=== PATIENT | male | born 1965 | race African-American/Black ===

== ENCOUNTER 2019-04-05 11:49 | Inpatient (IN) | payer OTHER ==
[2019-04-05 14:26] VITALS: BMI 29.0
--- NOTE | 2019-04-05 14:45 | HP ---
CIWA Score Nausea/Vomitin Muscle Tremors: 3 Anxiety: 3 Agitation: 3 Paroxysmal Sweats: No Perspiration Orientation: 0-Oriented Tacttile Disturbances: 1-Very Mild Itch/Numbness Auditory Disturbances: 0-None Visual Disturbances: 0-None Headache: 2-Mild CIWA-Ar Total Score: 14 - Admission Criteria OASAS Guidelines: Admission for Medically Managed Detox: Requires at least one of the followin. CIWA greater than 12 2. Seizures within the past 24 hours 3. Delirium tremens within the past 24 hours 4. Hallucinations within the past 24 hours 5. Acute intervention needed for co occurring medical disorder 6. Acute intervention needed for co occurring psychiatric disorder 7. Severe withdrawal that cannot be handled at a lower level of care (continued vomiting, continued diarrhea, abnormal vital signs) requiring intravenous medication and/or fluids 8. Admitting History and Physical - Admission Chief Complaint: i need help to stop using alcohol,cocaine History of Present Illness: this 53 years old male with alcohol and cocaine dependence seeking detox History Source: Patient Limitations to Obtaining History: No Limitations - Past Surgical History Past Surgical History: Yes: None - Smoking History Smoking history: Current every day smoker Have you smoked in the past 12 months: Yes Aproximately how many cigarettes per day: 20 - Alcohol/Substance Use Hx Alcohol Use: Yes History of Substance Use: reports: Cocaine - Social History Usual Living Arrangement: Yes: Alone Occupation: unemployed History of Recent Travel: Yes Other Social History: 53 years old male with alcohol,cociane dependence,living alone,. unemploed,smoke 1 pack/day,seeking detox Admission [facility] Chief Complaint: i need help to stop drinking alcohol and cocaine Allergies/Adverse Reactions: Allergies Allergy/AdvReac Type Severity Reaction Status Date / Time Fish Containing Products Allergy Intermediate Hives Verified 04/05/19 14:13 History of Present Illness: this 53 years old male with alcohol and cocaine dependence,seeking detox, had previous admissions in detox last 02/15 [facility] had synpoe denied seizure weight loss no significant period of sobriety plan for rehab after detox first visit to this facility Exam Limitations: No Limitations - Ebola screening Have you traveled outside of the country in the last 21 days: No Have you had contact with anyone from an Ebola affected area: No - Review of Systems Constitutional: Loss of Appetite, Malaise, Night Sweats, Changes in sleep, Weakness, Unintentional Wgt. Loss EENT: reports: Tearing, Nose Congestion Respiratory: reports: No Symptoms reported Cardiac: reports: Palpitations GI: reports: Nausea, Poor Appetite, Abdominal cramping : reports: No Symptoms Reported Musculoskeletal: reports: Back Pain, Muscle Pain Integumentary: reports: Dryness Neuro: reports: Headache, Tremors Endocrine: reports: No Symptoms Reported Hematology: reports: No Symptoms Reported Psychiatric: reports: No Sypmtoms Reported, Judgement Intact, Mood/Affect Appropiate, Orientated x3 Other Systems: Reviewed and Negative Patient History - Patient Medical History Hx Anemia: No Hx Asthma: No Hx Chronic Obstructive Pulmonary Disease (COPD): No Hx Cancer: No Hx Cardiac Disorders: No Hx Congestive Heart Failure: No Hx Hypertension: No Hx Hypercholesterolemia: No Hx Pacemaker: No HX Cerebrovascular Accident: No Hx Seizures: No Hx Dementia: No Hx Diabetes: No Hx Gastrointestinal Disorders: No Hx Liver Disease: No Hx Genitourinary Disorders: No Hx Sexually Transmitted Disorders: No Hx Renal Disease (ESRD): No Hx Thyroid Disease: No Hx Human Immunodeficiency Virus (HIV): No (last 02/15) Hx Hepatitis C: No Hx Depression: No Hx Suicide Attempt: No Hx Bipolar Disorder: No Hx Schizophrenia: No Other Medical History: nsuicidal,no homicidal - Patient Surgical History Past Surgical History: No - PPD History Previous Implant?: Yes Documented Results: Negative w/o proof Implanted On Prior [facility] Admission?: No PPD to be Administered?: Yes - Smoking Cessation Smoking history: Current every day smoker Have you smoked in the past 12 months: Yes Aproximately how many cigarettes per day: 20 Hx Chewing Tobacco Use: No Initiated information on smoking cessation: Yes 'Breaking Loose' booklet given: 04/05/19 - Substance & Tx. History Hx Alcohol Use: Yes Hx Substance Use: Yes Substance Use Type: Alcohol, Cocaine Hx Substance Use Treatment: Yes ([facility] 02/15) - Substances abused Alcohol Substance route: Oral Frequency: Daily Amount used: 3 pints of vodka Age of first use: 14 Date of last use: 04/05/19 Cocaine Substance route: Smoking Frequency: 1-2 times per week Amount used: 3 grams Age of first use: 25 Date of last use: 04/04/19 Admission Physical Exam [facility] - Vital Signs Vital Signs: Vital Signs - 24 hr 12/07/19 14:18 Temperature 97.5 F L Pulse Rate 112 H Respiratory 18 Rate Blood Pressure 98/60 - Physical General Appearance: Yes: Moderate Distress, Tremorous, Irritable, Sweating, Anxious HEENTM: Yes: Normal ENT Inspection, ANTONIETA, Pharynx Normal Respiratory: Yes: Lungs Clear, Normal Breath Sounds, No Respiratory Distress Neck: Yes: Within Normal Limits, Supple, Trachea in good position Breast: Yes: Within Normal Limits Cardiology: Yes: Tachycardia Abdominal: Yes: Within Normal Limits, Normal Bowel Sounds, Non Tender, Soft Genitourinary: Yes: Within Normal Limits Back: Yes: Muscle Spasm Musculoskeletal: Yes: Back pain, Muscle Pain Extremities: Yes: Tremors 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 NML intact, Fully Oriented, Alert, Abnormal Cranial NS Integumentary: Yes: Dry Lymphatic: Yes: Within Normal Limits - Diagnostic (1) Alcohol dependence with uncomplicated withdrawal Current Visit: Yes Status: Acute (2) Cocaine dependence Current Visit: Yes Status: Acute (3) Syncope Current Visit: Yes Status: Acute (4) Nicotine dependence Current Visit: Yes Status: Acute (5) Dehydration Current Visit: Yes Status: Acute (6) Insomnia Current Visit: Yes Status: Acute Cleared for Admission S - Detox or Rehab [facility] Level of Care: Medically Managed (ativan regimen) Inpatient Rehab Admission - Rehab Decision to Admit Inpatient rehab admission?: No
[2019-04-05] MEDS ORDERED: MENTHOL/PHENOL 1 EACH UD MM PRN (14:57)
[2019-04-05] MEDS ORDERED: MAGNESIUM HYDROX 2400MG/30ML ORAL SUSPENSION 30 ML CUP PO PRN (14:57)
[2019-04-05] MEDS ORDERED: LORazepam 1 MG TABLET PO PRN (14:57)
[2019-04-05] MEDS ORDERED: MAGNESIUM CITRATE 300 ML BOTTLE PO PRN (14:57)
[2019-04-05] MEDS ORDERED: BISMUTH SUBSALICYLATE 524 MG/30 ML UD PO PRN (14:57)
[2019-04-05] MEDS ORDERED: IBUPROFEN 400 MG TABLET (FP) PO PRN (14:57)
[2019-04-05] MEDS ORDERED: METHOCARBAMOL 500 MG TABLET PO PRN (14:57)
[2019-04-05] MEDS ORDERED: hydrOXYzine PAMOATE 25 MG CAPSULE (FP) PO PRN (14:57)
[2019-04-05] MEDS ORDERED: NICOTINE POLACRILEX 2 MG GUM BUC PRN (14:57)
[2019-04-05] MEDS ORDERED: MAG HYDROX/AL HYDROX/SIMETH 30 ML UNIT-DOSE CUP PO PRN (14:57)
[2019-04-05] MEDS ORDERED: MELATONIN 5 MG TABLETS PO PRN (14:57)
[2019-04-05] MEDS ORDERED: ACETAMINOPHEN 325 MG TABLET (FP) PO PRN ×2 (14:57)
[2019-04-05] MEDS: LORazepam 2 MG TABLET PO SCH ×2 (17:36→22:35)
[2019-04-05] MEDS: THIAMINE HCL 100 MG TABLET (FP) PO SCH (22:35)
[2019-04-06] MEDS: LORazepam 2 MG TABLET PO SCH ×4 (06:26→22:41)
[2019-04-06 10:00] LABS: HEMOGLOBIN 13.2 GM/dL (11.7-16.9); MCH 28.4 pg (25.7-33.7); MCHC 32.9 g/dl (32.0-35.9); MEAN CELL VOLUME 86.2 fl (80-96); MEAN PLT VOLUME 8.1 fl (7.5-11.1); PLATELET COUNT 204 K/MM3 (134-434); RBC 4.64 M/mm3 (4.00-5.60); RDW 14.6 % (11.9-15.9); WHITE BLOOD COUNT 3.7 K/mm3 (4.0-10.0)
[2019-04-06 10:09] LABS: ALBUMIN 3.1 g/dl (3.4-5.0); BILIRUBIN,TOTAL 0.3 mg/dL (0.2-1); BLOOD UREA NITROGEN 9.8 mg/dL (7-18); CALCIUM 8.2 mg/dL (8.5-10.1); CREATININE 1.2 mg/dL (0.55-1.3); POTASSIUM 3.9 mmol/L (3.5-5.1)
[2019-04-06] MEDS: PRENATAL VITAMINS W/ FOLIC ACID TABLET (FP) PO SCH (10:32)
--- NOTE | 2019-04-06 16:31 | PN ---
[facility] CIWA - CIWA Score Nausea/Vomitin-Mild Nausea/No Vomiting Muscle Tremors: 3 Anxiety: 3 Agitation: 2 Paroxysmal Sweats: 3 Orientation: 0-Oriented Tacttile Disturbances: 0-None Auditory Disturbances: 0-None Visual Disturbances: 0-None Headache: 0-None Present CIWA-Ar Total Score: 12 [facility] Progress Note (SOAP) Subjective: Tremor, chills, sweating, headache, yawning, nausea Objective: 04/06/19 16:22 Last Vital Signs Temp Pulse Resp BP Pulse Ox 97.1 F L 91 H 18 125/81 04/06/19 15:06 04/06/19 15:06 04/06/19 15:06 04/06/19 15:06 Laboratory Tests 04/06/19 04/06/19 04/06/19 07:50 07:50 07:50 WBC 3.7 L RBC 4.64 Hgb 13.2 Hct 40.0 MCV 86.2 MCH 28.4 MCHC 32.9 RDW 14.6 Plt Count 204 MPV 8.1 Sodium 140 Potassium 3.9 Chloride 105 Carbon Dioxide 28 Anion Gap 7 L BUN 9.8 Creatinine 1.2 Est GFR (CKD-EPI)AfAm 80.10 Est GFR (CKD-EPI)NonAf 69.11 Random Glucose 189 H Calcium 8.2 L Total Bilirubin 0.3 AST 45 H ALT 31 Alkaline Phosphatase 67 Total Protein 6.0 L Albumin 3.1 L RPR Titer Nonreactive Labs reviewed: Calcium 8.2 (L), AST (45): high, serum glucose 189 (high), total protein/albumin: low Assessment: 04/06/19 16:31 Withdrawal sxs Noted with hypocalcemia, transaminitis, hyperglycemia and hypoalbuminemia Plan: Continue detox Encouraged PO water intake Hypocalcemia: start calcium carbonate 650mg PO bid x 3 days Mild transaminitis: monitor AST periodically, encouraged abstinence from alcohol use, follow up with PCP for monitoring Hyperglycemia: denies DM, repeat fasting glucose, send HbA1c, start finger stick TIDAC with sliding scale insulin coverage TIDAC, initiate treatment for DM if warranted Hypoalbuminemia: encouraged diet
[2019-04-06] MEDS ORDERED: INSULIN SLIDING SCALE (NOVOLOG) 1 VIAL SQ SCH (16:45)
--- NOTE | 2019-04-06 17:38 | PN ---
S Progress Note Note: initial glucose is 189,denied diabetes,advise ncs,life style change diet modification,bgm achs and monitorng, to d/c insulin for now,fasting glucose in am,close monitoring of bgm
[2019-04-06] MEDS: THIAMINE HCL 100 MG TABLET (FP) PO SCH (22:41)
[2019-04-06] MEDS: CALCIUM CARBONATE 650 MG TABLET PO SCH (23:20)
--- NOTE | 2019-04-07 01:09 | EKG ---
Test Reason : Blood Pressure : / mmHG Vent. Rate : 085 BPM Atrial Rate : 085 BPM P-R Int : 144 ms QRS Dur : 092 ms QT Int : 342 ms P-R-T Axes : 070 043 044 degrees QTc Int : 406 ms NORMAL SINUS RHYTHM WITH SINUS ARRHYTHMIA NONSPECIFIC T WAVE ABNORMALITY ABNORMAL ECG NO PREVIOUS ECGS AVAILABLE Confirmed by DERECK RAMIREZ, CRESCENCIO ([id number]) on 04/07/2019 1:09:29 AM Referred By: Confirmed By:CRESCENCIO HARDEN MD
[2019-04-07] MEDS: LORazepam 1 MG TABLET PO SCH ×4 (05:54→22:26)
[2019-04-07] MEDS: CALCIUM CARBONATE 650 MG TABLET PO SCH ×2 (10:15→22:26)
[2019-04-07] MEDS: PRENATAL VITAMINS W/ FOLIC ACID TABLET (FP) PO SCH (10:15)
--- NOTE | 2019-04-07 13:01 | PN ---
S CIWA - CIWA Score Nausea/Vomitin-Mild Nausea/No Vomiting Muscle Tremors: 1-None Visible, but [place] Anxiety: 2 Agitation: 2 Paroxysmal Sweats: No Perspiration Orientation: 0-Oriented Tacttile Disturbances: 1-Very Mild Itch/Numbness Auditory Disturbances: 0-None Visual Disturbances: 0-None Headache: 1-Very Mild CIWA-Ar Total Score: 8 [facility] Progress Note (SOAP) Subjective: alert,irritable,anxiuos,interrupted sleep,tremor Objective: 04/07/19 12:59 Vital Signs Temperature 98.6 F 04/07/19 11:46 Pulse Rate 102 H 04/07/19 11:46 Respiratory Rate 16 04/07/19 11:46 Blood Pressure 121/82 04/07/19 11:46 O2 Sat by Pulse Oximetry (%) Abnormal Lab Results 04/07/19 04/07/19 07:50 07:50 Fasting Glucose 118 H Hemoglobin A1c % 6.9 H Assessment: 04/07/19 12:59 withdrawal symptom Plan: continue detox ativan regimen,diet modification ncs,bgm monitoring,
[2019-04-07] MEDS: THIAMINE HCL 100 MG TABLET (FP) PO SCH (22:26)
[2019-04-08] MEDS ORDERED: LORazepam 0.5 MG TABLET PO PRN
[2019-04-08] MEDS: LORazepam 0.5 MG TABLET PO SCH ×4 (05:52→22:13)
[2019-04-08] MEDS: PRENATAL VITAMINS W/ FOLIC ACID TABLET (FP) PO SCH (10:18)
[2019-04-08] MEDS: CALCIUM CARBONATE 650 MG TABLET PO SCH ×2 (10:19→22:13)
--- NOTE | 2019-04-08 10:56 | PN ---
S CIWA - CIWA Score Nausea/Vomitin-No Nausea/No Vomiting Muscle Tremors: 1-None Visible, but [place] Anxiety: 2 Agitation: 2 Paroxysmal Sweats: No Perspiration Orientation: 0-Oriented Tacttile Disturbances: 1-Very Mild Itch/Numbness Auditory Disturbances: 0-None Visual Disturbances: 0-None Headache: 1-Very Mild CIWA-Ar Total Score: 7 [facility] Progress Note (SOAP) Subjective: alert,irritable,anxious,interrupted sleep Objective: 04/08/19 10:49 Vital Signs Temperature 98.2 F 04/08/19 09:21 Pulse Rate 93 H 04/08/19 09:21 Respiratory Rate 04/08/19 09:21 Blood Pressure 118/68 04/08/19 09:21 O2 Sat by Pulse Oximetry (%) 04/08/19 10:49 bgm is 128 Assessment: 04/08/19 10:50 withdrawal symptom Plan: continue detox ativan regimen,ncs,life style diet modification bgm monitoring, patient will see his own pmd for follow up for hyperglycemia,patient's mother has dm,discharge in am
[2019-04-08] MEDS: THIAMINE HCL 100 MG TABLET (FP) PO SCH (22:13)
[2019-04-09] MEDS ORDERED: LORazepam 0.5 MG TABLET PO ONE (05:00)
--- NOTE | 2019-04-09 09:23 | DS ---
[facility] Detox Discharge Summary Admission Date: 04/05/19 Discharge Date: 04/09/19 - History Present History: Alcohol Dependence, Cocaine Dependence - Physical Exam Results Vital Signs: Vital Signs Temperature 98.1 F 04/09/19 06:57 Pulse Rate 86 04/09/19 06:57 Respiratory Rate 18 04/09/19 06:57 Blood Pressure 112/71 04/09/19 06:57 O2 Sat by Pulse Oximetry (%) Pertinent Admission Physical Exam Findings: Vital Signs Temperature 98.1 F 04/09/19 06:57 Pulse Rate 86 04/09/19 06:57 Respiratory Rate 18 04/09/19 06:57 Blood Pressure 112/71 04/09/19 06:57 O2 Sat by Pulse Oximetry (%) Laboratory Tests 04/06/19 04/06/19 04/06/19 07:50 07:50 07:50 WBC 3.7 L RBC 4.64 Hgb 13.2 Hct 40.0 MCV 86.2 MCH 28.4 MCHC 32.9 RDW 14.6 Plt Count 204 MPV 8.1 Sodium 140 Potassium 3.9 Chloride 105 Carbon Dioxide 28 Anion Gap 7 L BUN 9.8 Creatinine 1.2 Est GFR (CKD-EPI)AfAm 80.10 Est GFR (CKD-EPI)NonAf 69.11 POC Glucometer Random Glucose 189 H Fasting Glucose Hemoglobin A1c % Calcium 8.2 L Total Bilirubin 0.3 AST 45 H ALT 31 Alkaline Phosphatase 67 Total Protein 6.0 L Albumin 3.1 L RPR Titer Nonreactive 04/07/19 04/07/19 04/07/19 05:55 07:50 07:50 WBC RBC Hgb Hct MCV MCH MCHC RDW Plt Count MPV Sodium Potassium Chloride Carbon Dioxide Anion Gap BUN Creatinine Est GFR (CKD-EPI)AfAm Est GFR (CKD-EPI)NonAf POC Glucometer 137 Random Glucose Fasting Glucose 118 H Hemoglobin A1c % 6.9 H Calcium Total Bilirubin AST ALT Alkaline Phosphatase Total Protein Albumin RPR Titer 04/07/19 04/07/19 04/08/19 16:19 21:57 07:05 WBC RBC Hgb Hct MCV MCH MCHC RDW Plt Count MPV Sodium Potassium Chloride Carbon Dioxide Anion Gap BUN Creatinine Est GFR (CKD-EPI)AfAm Est GFR (CKD-EPI)NonAf POC Glucometer 149 133 128 Random Glucose Fasting Glucose Hemoglobin A1c % Calcium Total Bilirubin AST ALT Alkaline Phosphatase Total Protein Albumin RPR Titer 04/08/19 04/08/19 04/09/19 16:27 21:36 05:45 WBC RBC Hgb Hct MCV MCH MCHC RDW Plt Count MPV Sodium Potassium Chloride Carbon Dioxide Anion Gap BUN Creatinine Est GFR (CKD-EPI)AfAm Est GFR (CKD-EPI)NonAf POC Glucometer 159 204 142 Random Glucose Fasting Glucose Hemoglobin A1c % Calcium Total Bilirubin AST ALT Alkaline Phosphatase Total Protein Albumin RPR Titer aaox3 ambulating no acute distress - Treatment Hospital Course: Detox Protocol Followed, Detoxed Safely, Responded well, Discharged Condition Good, Rehab Referral Accepted Patient has Accepted a Rehab Referral to: pt referred to [facility] - Medication Discharge Medications: Ambulatory Orders NK [No Known Home Medication] 04/05/19 - Diagnosis (1) Alcohol dependence with uncomplicated withdrawal Current Visit: Yes Status: Chronic (2) Cocaine dependence Current Visit: Yes Status: Chronic Qualifiers: Substance use status: uncomplicated Qualified Code(s): F14.20 - Cocaine dependence, uncomplicated (3) Insomnia Current Visit: Yes Status: Acute (4) Nicotine dependence Current Visit: Yes Status: Chronic Qualifiers: Nicotine product type: cigarettes Substance use status: uncomplicated Qualified Code(s): F17.210 - Nicotine dependence, cigarettes, uncomplicated (5) Syncope Current Visit: Yes Status: Acute - AMA Did Patient Leave Against Medical Advice: No
[2019-04-09 09:28] VITALS: BP 112/66; PULSE 96; TEMP 97.7
== END 2019-04-09 10:32 | disposition home or self-care (01) | DRG 774 ==
LOC: YASAS 11:49 → Y6N 15:19
PROVIDERS: ADMIT Allergy & Immunology; ATTEND Allergy & Immunology
PROC: HZ2ZZZZ Detoxification Services for Substance Abuse Treatment (ICD-10-PCS; principal; 2019-04-05)
DX: F10.230 Alcohol dependence with withdrawal, uncomplicated (principal); F14.20 Cocaine dependence, uncomplicated; F17.210 Nicotine dependence, cigarettes, uncomplicated; G47.00 Insomnia, unspecified; E86.0 Dehydration; E88.09 Other disorders of plasma-protein metabolism, not elsewhere classified; E83.51 Hypocalcemia; R74.0 Nonspecific elevation of levels of transaminase and lactic acid dehydrogenase [LDH]; R55 Syncope and collapse; R73.9 Hyperglycemia, unspecified; R63.4 Abnormal weight loss; Z68.29 Body mass index [BMI] 29.0-29.9, adult; Z91.013 Allergy to seafood
CPT/HCPCS: 36415; 80053; 82947; 82962; 83036; 85027; 86593; 93005; 93010

== ENCOUNTER 2022-01-03 15:42 | Inpatient (IN) | payer OTHER ==
[2022-01-03 20:31] VITALS: BMI 26.4
[2022-01-03] MEDS ORDERED: MAGNESIUM HYDROX 2400MG/30ML ORAL SUSPENSION 30 ML CUP PO PRN (21:26)
[2022-01-03] MEDS ORDERED: IBUPROFEN 400 MG TABLET (FP) PO PRN (21:26)
[2022-01-03] MEDS ORDERED: BISMUTH SUBSALICYLATE 524 MG/30 ML PO PRN (21:26)
[2022-01-03] MEDS ORDERED: LOPERAMIDE HCL 2 MG CAPSULE PO PRN (21:26)
[2022-01-03] MEDS ORDERED: MAGNESIUM CITRATE 300 ML BOTTLE PO PRN (21:26)
[2022-01-03] MEDS ORDERED: BENZOCAINE/MENTHOL (CHLORASEPTIC ) LOZENGE MM PRN (21:26)
[2022-01-03] MEDS ORDERED: ONDANSETRON *ODT* 4 MG TABLET SL PRN (21:26)
[2022-01-03] MEDS ORDERED: IBUPROFEN 600 MG TABLET (FP) PO PRN (21:26)
[2022-01-03] MEDS ORDERED: DICYCLOMINE HCL 10 MG CAPSULE PO PRN (21:26)
[2022-01-03] MEDS ORDERED: ACETAMINOPHEN 325 MG TABLET (FP) PO PRN ×2 (21:26)
[2022-01-03] MEDS ORDERED: NICOTINE POLACRILEX 2 MG GUM BUC PRN (21:26)
[2022-01-03] MEDS ORDERED: hydrOXYzine PAMOATE 25 MG CAPSULE (FP) PO PRN (21:26)
[2022-01-03] MEDS ORDERED: P-EPHED 60MG/TRIPROLIDI 2.5MG TABLET PO PRN (21:26)
[2022-01-03] MEDS ORDERED: MAG HYDROX/AL HYDROX/SIMETH 30 ML UNIT-DOSE CUP PO PRN (21:26)
[2022-01-04] MEDS: THIAMINE HCL 100 MG TABLET (FP) PO SCH ×2 (01:51→22:48)
[2022-01-04] MEDS: PRENATAL VITAMINS W/ FOLIC ACID TABLET (FP) PO SCH ×2 (11:06→11:08)
[2022-01-04 13:52] LABS: CALCIUM 7.8 mg/dL (8.5-10.1)
[2022-01-04 13:53] LABS: ALBUMIN 2.8 g/dl (3.4-5.0); BLOOD UREA NITROGEN 7.5 mg/dL (7-18)
[2022-01-04 13:56] LABS: CREATININE 1.2 mg/dL (0.55-1.3)
[2022-01-04 13:57] LABS: BILIRUBIN,TOTAL 0.3 mg/dL (0.2-1); TOT PROT 5.6 g/dl (6.4-8.2)
[2022-01-04 14:01] LABS: HEMATOCRIT 33.6 % (35.4-49); MCH 28.2 pg (25.7-33.7); MCHC 32.8 g/dl (32.0-35.9); MEAN PLT VOLUME 8.2 fl (7.5-11.1); PLATELET COUNT 212 10^3/uL (134-434); RDW 14.6 % (11.9-15.9); WHITE BLOOD COUNT 5.1 K/mm3 (4.0-10.0)
[2022-01-04] MEDS: INSULIN SLIDING SCALE (NOVOLOG) 1 VIAL SQ SCH ×2 (17:47→22:59)
[2022-01-04] MEDS: MELATONIN 5 MG TABLETS PO PRN (22:48)
[2022-01-04] MEDS: METHOCARBAMOL 500 MG TABLET PO PRN (22:49)
[2022-01-05] MEDS: INSULIN SLIDING SCALE (NOVOLOG) 1 VIAL SQ SCH ×4 (06:59→23:58)
[2022-01-05] MEDS: guaiFENesin 200 MG/10 ML 10 ML UNIT-DOSE CUPS PO PRN ×2 (10:53→17:19)
[2022-01-05] MEDS: PRENATAL VITAMINS W/ FOLIC ACID TABLET (FP) PO SCH (10:53)
[2022-01-05] MEDS: MELATONIN 5 MG TABLETS PO PRN (23:00)
[2022-01-05] MEDS: THIAMINE HCL 100 MG TABLET (FP) PO SCH (23:00)
[2022-01-06] MEDS ORDERED: INSULIN SLIDING SCALE (NOVOLOG) 1 VIAL SQ ONE (08:11)
[2022-01-06] MEDS: INSULIN SLIDING SCALE (NOVOLOG) 1 VIAL SQ SCH ×4 (08:12→22:29)
[2022-01-06] MEDS: PRENATAL VITAMINS W/ FOLIC ACID TABLET (FP) PO SCH (10:57)
[2022-01-06] MEDS: guaiFENesin 200 MG/10 ML 10 ML UNIT-DOSE CUPS PO PRN (15:32)
[2022-01-06] MEDS: THIAMINE HCL 100 MG TABLET (FP) PO SCH (22:29)
[2022-01-06] MEDS: MELATONIN 5 MG TABLETS PO PRN (22:29)
[2022-01-07] MEDS: INSULIN SLIDING SCALE (NOVOLOG) 1 VIAL SQ SCH ×4 (08:09→22:31)
[2022-01-07] MEDS: PRENATAL VITAMINS W/ FOLIC ACID TABLET (FP) PO SCH (10:40)
[2022-01-07] MEDS: guaiFENesin 200 MG/10 ML 10 ML UNIT-DOSE CUPS PO PRN (17:20)
[2022-01-07] MEDS: THIAMINE HCL 100 MG TABLET (FP) PO SCH (22:31)
[2022-01-07] MEDS: MELATONIN 5 MG TABLETS PO PRN (22:31)
[2022-01-08] MEDS: INSULIN SLIDING SCALE (NOVOLOG) 1 VIAL SQ SCH ×4 (07:02→22:37)
[2022-01-08] MEDS: PRENATAL VITAMINS W/ FOLIC ACID TABLET (FP) PO SCH (10:44)
[2022-01-08] MEDS: THIAMINE HCL 100 MG TABLET (FP) PO SCH (22:37)
[2022-01-09] MEDS: INSULIN SLIDING SCALE (NOVOLOG) 1 VIAL SQ SCH ×4 (06:16→22:28)
[2022-01-09] MEDS: PRENATAL VITAMINS W/ FOLIC ACID TABLET (FP) PO SCH (10:37)
[2022-01-09] MEDS: THIAMINE HCL 100 MG TABLET (FP) PO SCH (21:18)
[2022-01-09] MEDS: METHOCARBAMOL 500 MG TABLET PO PRN (21:18)
[2022-01-09 22:12] VITALS: RESP 18
[2022-01-10 07:00] VITALS: PULSE 58
[2022-01-10] MEDS: INSULIN SLIDING SCALE (NOVOLOG) 1 VIAL SQ SCH (08:25)
[2022-01-10 09:19] VITALS: BP 92/56; TEMP 97.8
[2022-01-10] MEDS: PRENATAL VITAMINS W/ FOLIC ACID TABLET (FP) PO SCH (11:17)
== END 2022-01-10 11:55 | disposition home or self-care (01) | DRG 774 ==
LOC: YASAS 15:42 → UNDOADMIN 01-04 01:29 → Y3N 01-04 01:29
PROVIDERS: ADMIT Allergy & Immunology; ATTEND Family Medicine Addiction Medicine
PROC: HZ2ZZZZ Detoxification Services for Substance Abuse Treatment (ICD-10-PCS; principal; 2022-01-04)
DX: F10.230 Alcohol dependence with withdrawal, uncomplicated (principal); F14.20 Cocaine dependence, uncomplicated; F17.210 Nicotine dependence, cigarettes, uncomplicated; U07.1 COVID-19; G62.9 Polyneuropathy, unspecified; R76.8 Other specified abnormal immunological findings in serum; E11.9 Type 2 diabetes mellitus without complications; Z79.4 Long term (current) use of insulin
CPT/HCPCS: 36415; 80053; 82962; 85027; 86593; 86780; C9803-CS; U0003; U0005

== ENCOUNTER 2023-04-25 12:58 | Inpatient (IN) | payer OTHER ==
[2023-04-25 13:53] VITALS: BMI 29.0
[2023-04-25] MEDS ORDERED: ACETAMINOPHEN 325 MG TABLET (FP) PO PRN (18:52)
[2023-04-25] MEDS ORDERED: chlordiazePOXIDE HCL 25 MG CAPSULE PO PRN (18:52)
[2023-04-25] MEDS ORDERED: DICYCLOMINE HCL 10 MG CAPSULE PO PRN (18:52)
[2023-04-25] MEDS ORDERED: POLYETHYLENE GLYCOL (HEALTHYLAX) 3350 17 GM PACKET PO PRN (18:52)
[2023-04-25] MEDS ORDERED: guaiFENesin 600 MG TABLET.ER (FP) PO PRN (18:52)
[2023-04-25] MEDS ORDERED: MAGNESIUM HYDROX 2400MG/30ML ORAL SUSPENSION 30 ML CUP PO PRN (18:52)
[2023-04-25] MEDS ORDERED: NALOXONE HCL 0.4 MG/ML VIAL IM PRN (18:52)
[2023-04-25] MEDS ORDERED: IBUPROFEN 400 MG TABLET (FP) PO PRN (18:52)
[2023-04-25] MEDS ORDERED: IBUPROFEN 600 MG TABLET (FP) PO PRN (18:52)
[2023-04-25] MEDS ORDERED: LOPERAMIDE HCL 2 MG CAPSULE PO PRN (18:52)
[2023-04-25] MEDS ORDERED: hydrOXYzine PAMOATE 25 MG CAPSULE (FP) PO PRN (18:52)
[2023-04-25] MEDS ORDERED: NALOXONE HCL (KLOXXADO) 8 MG SPRAY NS PRN (18:52)
[2023-04-25] MEDS ORDERED: BENZOCAINE/MENTHOL (CHLORASEPTIC ) LOZENGE MM PRN (18:52)
[2023-04-25] MEDS ORDERED: ONDANSETRON *ODT* 4 MG TABLET SL PRN (18:52)
[2023-04-25] MEDS ORDERED: BISMUTH SUBSALICYLATE 524 MG/30 ML PO PRN (18:52)
[2023-04-25] MEDS ORDERED: METHOCARBAMOL 500 MG TABLET PO PRN (18:52)
[2023-04-25] MEDS ORDERED: MAG HYDROX/AL HYDROX/SIMETH 30 ML UNIT-DOSE CUP PO PRN (18:52)
[2023-04-25] MEDS ORDERED: BENZONATATE 200 MG CAPSULE PO PRN (18:52)
[2023-04-25] MEDS: chlordiazePOXIDE HCL 25 MG CAPSULE PO SCH (22:12)
[2023-04-25] MEDS: INSULIN (LEVEMIR) 100 UNITS/ML UNITS SQ SCH (22:13)
[2023-04-25] MEDS: THIAMINE HCL 100 MG TABLET (FP) PO SCH (22:13)
[2023-04-25] MEDS: MELATONIN 5 MG TABLETS PO SCH (22:13)
[2023-04-26] MEDS: chlordiazePOXIDE HCL 25 MG CAPSULE PO SCH ×4 (06:00→23:12)
[2023-04-26] MEDS: metFORMIN HCL 500 MG TABLET (FP) PO SCH ×2 (06:18→17:01)
[2023-04-26] MEDS: INSULIN SLIDING SCALE (NOVOLOG) 1 VIAL SQ SCH ×3 (06:20→17:00)
[2023-04-26] MEDS: PANTOPRAZOLE 40 MG TABLET PO SCH (10:48)
[2023-04-26] MEDS: PRENATAL VITAMINS W/ FOLIC ACID TABLET (FP) PO SCH (10:48)
[2023-04-26 11:09] LABS: HEMATOCRIT 42.6 % (35.4-49); HEMOGLOBIN 13.9 GM/dL (11.7-16.9); MCH 28.9 pg (25.7-33.7); MCHC 32.6 g/dl (32.0-35.9); MEAN CELL VOLUME 88.6 fl (80-96); MEAN PLT VOLUME 7.7 fl (7.5-11.1); PLATELET COUNT 320 10^3/uL (134-434); RDW 13.7 % (11.9-15.9); WHITE BLOOD COUNT 5.8 K/mm3 (4.0-10.0)
[2023-04-26 12:24] LABS: CHLORIDE 104 mmol/L (98-107); POTASSIUM 4.3 mmol/L (3.5-5.1); SODIUM 138 mmol/L (136-145)
[2023-04-26 12:28] LABS: ALBUMIN 3.3 g/dl (3.4-5.0); ANION GAP 5 mmol/L (4-13); BLOOD UREA NITROGEN 15.9 mg/dL (7-18); CALCIUM 9.7 mg/dL (8.5-10.1); CO2 29 mmol/L (21-32); GLUCOSE,RANDOM 140 mg/dL (74-106)
[2023-04-26 12:30] LABS: CREATININE 1.1 mg/dL (0.55-1.3); SGOT/AST 8 U/L (15-37); SGPT/ALT 18 U/L (13-61)
[2023-04-26 12:32] LABS: ALK PHOS 54 U/L (45-117); BILIRUBIN,TOTAL 0.3 mg/dL (0.2-1)
[2023-04-26] MEDS ORDERED: TAMSULOSIN HCL 0.4 MG CAP PO SCH (22:00)
[2023-04-26] MEDS: MELATONIN 5 MG TABLETS PO SCH (22:11)
[2023-04-26] MEDS: DIVALPROEX SODIUM 500 MG TABLET E.C. PO SCH (22:11)
[2023-04-26] MEDS: THIAMINE HCL 100 MG TABLET (FP) PO SCH (22:12)
[2023-04-26] MEDS: risperiDONE 1 MG TABLET PO SCH (22:12)
[2023-04-26] MEDS: INSULIN (LEVEMIR) 100 UNITS/ML UNITS SQ SCH (22:12)
[2023-04-27] MEDS: chlordiazePOXIDE HCL 25 MG CAPSULE PO SCH ×4 (05:45→22:12)
[2023-04-27] MEDS: metFORMIN HCL 500 MG TABLET (FP) PO SCH ×2 (07:18→16:45)
[2023-04-27] MEDS: INSULIN SLIDING SCALE (NOVOLOG) 1 VIAL SQ SCH ×3 (07:19→16:48)
[2023-04-27] MEDS: TAMSULOSIN HCL 0.4 MG CAP PO SCH (08:42)
[2023-04-27] MEDS: PRENATAL VITAMINS W/ FOLIC ACID TABLET (FP) PO SCH (10:21)
[2023-04-27] MEDS: DIVALPROEX SODIUM 500 MG TABLET E.C. PO SCH ×2 (10:21→22:12)
[2023-04-27] MEDS: PANTOPRAZOLE 40 MG TABLET PO SCH (10:22)
[2023-04-27] MEDS: risperiDONE 1 MG TABLET PO SCH (22:12)
[2023-04-27] MEDS: INSULIN (LEVEMIR) 100 UNITS/ML UNITS SQ SCH (22:12)
[2023-04-27] MEDS: THIAMINE HCL 100 MG TABLET (FP) PO SCH (22:12)
[2023-04-27] MEDS: MELATONIN 5 MG TABLETS PO SCH (22:12)
[2023-04-28] MEDS ORDERED: chlordiazePOXIDE HCL 10 MG CAPSULE PO PRN
[2023-04-28] MEDS: chlordiazePOXIDE HCL 10 MG CAPSULE PO SCH ×4 (05:35→22:58)
[2023-04-28] MEDS: INSULIN SLIDING SCALE (NOVOLOG) 1 VIAL SQ SCH ×3 (06:19→17:58)
[2023-04-28] MEDS: metFORMIN HCL 500 MG TABLET (FP) PO SCH ×2 (06:19→17:39)
[2023-04-28] MEDS: TAMSULOSIN HCL 0.4 MG CAP PO SCH (08:50)
[2023-04-28] MEDS: PRENATAL VITAMINS W/ FOLIC ACID TABLET (FP) PO SCH (10:11)
[2023-04-28] MEDS: PANTOPRAZOLE 40 MG TABLET PO SCH (10:11)
[2023-04-28] MEDS: DIVALPROEX SODIUM 500 MG TABLET E.C. PO SCH ×2 (10:12→22:52)
[2023-04-28] MEDS: risperiDONE 1 MG TABLET PO SCH (22:52)
[2023-04-28] MEDS: MELATONIN 5 MG TABLETS PO SCH (22:53)
[2023-04-28] MEDS: INSULIN (LEVEMIR) 100 UNITS/ML UNITS SQ SCH (22:53)
[2023-04-28] MEDS: THIAMINE HCL 100 MG TABLET (FP) PO SCH (22:53)
[2023-04-29] MEDS: chlordiazePOXIDE HCL 10 MG CAPSULE PO SCH ×2 (05:32→17:13)
[2023-04-29] MEDS: metFORMIN HCL 500 MG TABLET (FP) PO SCH ×2 (06:37→17:12)
[2023-04-29] MEDS: INSULIN SLIDING SCALE (NOVOLOG) 1 VIAL SQ SCH ×3 (06:38→17:15)
[2023-04-29] MEDS: TAMSULOSIN HCL 0.4 MG CAP PO SCH (09:02)
[2023-04-29] MEDS: PRENATAL VITAMINS W/ FOLIC ACID TABLET (FP) PO SCH (10:23)
[2023-04-29] MEDS: PANTOPRAZOLE 40 MG TABLET PO SCH (10:24)
[2023-04-29] MEDS: DIVALPROEX SODIUM 500 MG TABLET E.C. PO SCH ×2 (10:24→22:32)
[2023-04-29] MEDS: VITAMINS A AND D TOPICAL OINTMENT 60 GM TUBE TP SCH ×3 (12:18→23:53)
[2023-04-29] MEDS: MELATONIN 5 MG TABLETS PO SCH (22:32)
[2023-04-29] MEDS: THIAMINE HCL 100 MG TABLET (FP) PO SCH (22:32)
[2023-04-29] MEDS: risperiDONE 1 MG TABLET PO SCH (22:32)
[2023-04-29] MEDS: INSULIN (LEVEMIR) 100 UNITS/ML UNITS SQ SCH (22:33)
[2023-04-30] MEDS ORDERED: chlordiazePOXIDE HCL 10 MG CAPSULE PO ONE (05:00)
[2023-04-30] MEDS: VITAMINS A AND D TOPICAL OINTMENT 60 GM TUBE TP SCH ×2 (06:50→12:08)
[2023-04-30] MEDS: metFORMIN HCL 500 MG TABLET (FP) PO SCH (07:00)
[2023-04-30] MEDS: INSULIN SLIDING SCALE (NOVOLOG) 1 VIAL SQ SCH ×2 (07:42→11:55)
[2023-04-30] MEDS: TAMSULOSIN HCL 0.4 MG CAP PO SCH (08:42)
[2023-04-30] MEDS: PRENATAL VITAMINS W/ FOLIC ACID TABLET (FP) PO SCH (10:09)
[2023-04-30] MEDS: PANTOPRAZOLE 40 MG TABLET PO SCH (10:09)
[2023-04-30] MEDS: DIVALPROEX SODIUM 500 MG TABLET E.C. PO SCH (10:09)
[2023-04-30 10:49] VITALS: PULSE 82; RESP 18
[2023-04-30 13:39] VITALS: BP 102/61; TEMP 98
[2023-04-30] MEDS ORDERED: VITAMINS A AND D TOPICAL OINTMENT 60 GM TUBE TP SCH (14:15)
== END 2023-04-30 14:25 | disposition home or self-care (01) | DRG 774 ==
LOC: YASAS 12:58 → Y6N 18:41
PROVIDERS: ADMIT Allergy & Immunology; ATTEND Surgery
PROC: HZ2ZZZZ Detoxification Services for Substance Abuse Treatment (ICD-10-PCS; principal; 2023-04-25)
DX: F10.230 Alcohol dependence with withdrawal, uncomplicated (principal); F13.230 Sedative, hypnotic or anxiolytic dependence with withdrawal, uncomplicated; F14.20 Cocaine dependence, uncomplicated; F25.0 Schizoaffective disorder, bipolar type; F31.9 Bipolar disorder, unspecified; F43.10 Post-traumatic stress disorder, unspecified; G47.00 Insomnia, unspecified; E11.9 Type 2 diabetes mellitus without complications; Z79.4 Long term (current) use of insulin; K21.9 Gastro-esophageal reflux disease without esophagitis; N40.0 Benign prostatic hyperplasia without lower urinary tract symptoms; Z87.891 Personal history of nicotine dependence; Z88.0 Allergy status to penicillin; Z56.0 Unemployment, unspecified; Z59.00 Homelessness unspecified
CPT/HCPCS: 36415; 80053; 80164; 80307; 82962; 83036; 85027; 86593; 86780; 87635